=== PATIENT | male | born 1960 | race Caucasian/White ===

== ENCOUNTER 2017-09-16 10:24 | Observation (INO) | payer MEDICARE, OTHER ==
[2017-09-16 10:37] LABS: Actual Bicarbonate (HCO3a) 24.1 mEq/L (22-28); Base Excess (BEa) -0.9 mEq/L (-2.0 to +3.0); CO2 Tension 41.4 mmHg (35.0-45.0); Hemoglobin (Hb) 13.5 g/dL (14.0-18.0); O2 Tension (PaO2) 85.9 mmHg (80.0-100.0); pH, Arterial 7.38 (7.35-7.45)
[2017-09-16 10:38] LABS: Analyzer IN Cardio ER; Calcium, Ionized 1.2 mmol/L (1.12-1.30); Puncture Site RRA
[2017-09-16] MEDS ORDERED: Metoprolol Tartrate 5 MG/5 ML VIAL ONE (10:51)
[2017-09-16] MEDS ORDERED: Nitroglycerin 0.4 MG TAB (25 Tab Bottle) ONE (10:51)
[2017-09-16] MEDS ORDERED: Nitroglycerin 2% Ointment 1 INCH/1 GM Packet ONE (10:51)
[2017-09-16 11:14] LABS: #Eosinphils 0.2 thou/uL (0.0-0.7); #Lymphocytes 1.5 thou/uL (1.20-3.40); #Monocytes 0.4 thou/uL (0.11-0.59); #Neutrophils 5.6 thou/uL (1.40-6.50); %Basophils 0.6 % (0.0-1.0); %Lymphocytes 19.1 % (21.0-51.0); %Monocytes 4.5 % (0.0-10.0); %Neutrophils 72.8 % (42.0-75.0); Hemoglobin 14.6 g/dL (14.0-18.0); Mean Corpuscular Hemoglobin 31.2 pg (27.0-31.0); Mean Corpuscular Volume 94.6 fL (78.0-98.0); Mean Platelet Volume 6.5 fL (7.4-10.4); Platelet Count 296 thou/uL (130-400); RBC Distribution Width 13.9 % (11.5-14.5); Red Blood Cell (RBC) Count 4.69 mill/uL (4.70-6.10); White Blood Cell (WBC) Count 7.7 thou/uL (4.8-10.8)
--- NOTE | 2017-09-16 11:25 | RAD ---
UPRIGHT PORTABLE CHEST 1 VIEW: HISTORY: A 56-year-old male with a history of dyspnea and shortness of breath with labored breathing. FINDINGS: The patient has a very large body habitus which considerably lowers the sensitivity of this study. C ardiomegaly with bilateral vascular congestion and small pleural effusions and possibly mild acute ed rolf. Loop recorder overlying the left upper chest. Very poor inspiration. IMPRESSION: Suboptimal inspiratory effort with very large body habitus. Cardiomegaly with bilateral vascular con gestion and probably mild interstitial edema and pleural effusions, evidence for congestive heart adilia lure new from prior 05/01/05 study. Continued short-term followup. POS: [facility]
[2017-09-16] MEDS ORDERED: Furosemide 100 MG/10 ML VIAL ONE (11:31)
[2017-09-16 11:33] LABS: ALT (SGPT) 16 U/L (8-55); AST (SGOT) 15 U/L (5-34); Albumin 4.2 g/dL (3.5-5.0); Alkaline Phosphatase 103 U/L (40-150); Anion Gap 14 mmol/L (10-20); BUN (Urea Nitrogen) 16 mg/dL (8.4-25.7); Bilirubin, Total 0.7 mg/dL (0.2-1.2); CK (CPK) 41 U/L (30-200); Calc. Creatinine Clearance 0 mL/min (70-130); Calcium 8.9 mg/dL (7.8-10.44); Carbon Dioxide 23 mmol/L (22-29); Chloride 103 mmol/L (98-107); Estimated GFR-MDRD 87; Globulin 3.3 g/dL (2.4-3.5); Glucose 124 mg/dL (70-105); Potassium 4.3 mmol/L (3.5-5.1); Protein, Total 7.5 g/dL (6.0-8.3); Sodium 136 mmol/L (136-145)
[2017-09-16 11:38] LABS: Troponin I Less than 0.010 ng/mL (< 0.028)
[2017-09-16] MEDS ORDERED: Piperacillin/Tazobactam 4.5 GM VIAL ONE (12:34)
[2017-09-16 15:44] LABS: Troponin I Less than 0.010 ng/mL (< 0.028)
[2017-09-16] MEDS ORDERED: Senokot 8.6 MG TAB PO PRN (15:54)
[2017-09-16] MEDS ORDERED: Acetaminophen 325 MG TAB PO PRN (15:54)
[2017-09-16] MEDS ORDERED: Nitroglycerin 0.4 MG TAB (25 Tab Bottle) SL SCH (16:00)
[2017-09-16 17:40] LABS: Free T4 (Free Thyroxine) 0.99 ng/dL (0.70-1.48); Thyroid Stimulating Hormone 1.6692 uIU/mL (0.35-4.94)
[2017-09-16 18:51] LABS: Troponin I Less than 0.010 ng/mL (< 0.028)
[2017-09-16] MEDS: cloNIDine 0.1 MG TAB PO SCH (20:43)
[2017-09-16] MEDS: Cyclobenzaprine 10 MG TAB PO SCH (20:43)
[2017-09-16] MEDS: Carvedilol 6.25 MG TAB PO SCH (20:43)
[2017-09-16] MEDS ORDERED: Atorvastatin Calcium 40 MG TAB PO SCH (21:00)
--- NOTE | 2017-09-16 21:53 | PDOC.EVN ---
Event Note - Event Note Event Note: Patient initially indicated that he did not want any resuscitative efforts stating, "When its my time to go, I want to go.", but has clarified that he actually does want all measures taken initially. He is full code.
--- NOTE | 2017-09-16 23:00 | HP ---
DATE OF ADMISSION: 09/16/2017 CHIEF COMPLAINT: Shortness of breath. HISTORY OF PRESENT ILLNESS: This patient is a 56-year-old male with a history of morbid obesity and coronary artery disease. He reports he has had myocardial infarction x7 in the past. Reports his la st evaluation by his primary leach tank tender, Dr. Vela, was 6 months ago. He states at that time h e had stress test, which was apparently unremarkable. Patient presented via ambulance today. He was actually hoping to get to the med, but he was having s hortness of breath requiring the use of his CPAP, and therefore had to be brought here as it was clos er. The patient states that over the past 3 months, he is having worsening shortness of breath and o ila the last 3 weeks that has become significantly worse. He also has had some associated orthopnea during the last few weeks as well. He has no fevers or chills. No cough, no chest pain. He saw his PCP, Dr. Malik at one point for this and was told that he should try his nitroglycerin would be ons et of symptoms. He tried that, but did not seem to make a significant amount of difference. REVIEW OF SYSTEMS: Notable for some increasing weight. He said otherwise no sleep issues. ENT: No problems with hearing, vision, taste, or smell. Gastrointestinal: Patient reports some constipatio n with bowel movement every 3 weeks. He denies swallowing difficulties or diarrhea. Cardiovascular: No chest pains, palpitations, and he denies peripheral edema. Pulmonary: Patient has shortness of breath as above, but denies cough or wheezing. Genitourinary: Patient denies dysuria, frequency, n octuria, or incontinence. Skin: Denies rashes or lesions. No numbness, weakness, or tingling. Psy ch: Denies anxiety or depression symptoms. Endo: Patient denies polyuria, polydipsia. PAST MEDICAL HISTORY: Notable for myocardial infarction x7. He has had stents, hypertension, diabet es mellitus, hyperlipidemia, obstructive sleep apnea on CPAP. He also has a hernia that has been rep aired. PAST SURGICAL HISTORY: Patient had a loop recorder placed. It has been present in his chest for 10 years. He did not want to spend the money to take it out. FAMILY HISTORY: Father has diabetes. Mother has coronary artery disease. SOCIAL HISTORY: Patient had a history of smoking and drinking quite heavily, but he quit 18 years ag o. He denies drugs. He is , but does not live with his . They live on the same property , but not in the same indwelling. Patient's primary physician is Dr. Malik. His surrogate decision maker would be his . ALLERGIES: None. HOME MEDICATIONS: Atorvastatin 80 mg at bedtime, clonidine 0.1 mg b.i.d., meloxicam 15 mg every day, Prinivil 5 mg every day, Amaryl 1 mg every day, Flonase 2 sprays per nostril every day, Flexeril 10 mg t.i.d., Plavix 75 mg p.o. every day, allopurinol 300 mg every day, Nitrostat 0.4 mg every 5 minute s p.r.n., Coreg 6.25 mg p.o. b.i.d. PHYSICAL EXAMINATION: VITAL SIGNS: BP was 120/92, respirations 18, pulse 116, O2 sat was 92% on 2 liters. Of note, the rip yarbrough did receive 5 mg of IV metoprolol in the emergency department, given some elevated blood pressu re was as high as 185/121. He also received sublingual nitroglycerin. GENERAL APPEARANCE: Morbidly obese, age appropriate male. Presently, he is in no distress and appea rs comfortable. He is speaking in full sentences. HEENT: Patient has some periorbital puffiness. He has no OP lesions, but small oral airway and has snuff in his buccal pouch. NECK: It is difficult to examine, but no asymmetry or masses. CARDIOVASCULAR: Regular and borderline tachycardic. Exam is compromised by his habitus somewhat. LUNGS: Clear to auscultation. I do not hear any wheezes or rales. ABDOMEN: Obese, soft, nontender, nondistended, positive bowel sounds. I cannot palpate any masses o r organomegaly. EXTREMITIES: Have 2+ pitting edema in the pretibial area up to the knee. LABORATORY DATA: White count 7.7, hemoglobin 14.6, platelets 296. ABG: pH 7.38, pCO2 of 41.4, pO2 of 85.9. Sodium 139, potassium 4.3, chloride 99, ionized calcium is 1.2 and that was performed on [facility] at 02/27. Chemistries were only notable for a glucose of 124. Troponin is less than 0.01 x2. BN P is 168.3, albumin 4.2. Chest x-ray compromised by the patient's body habitus and poor inspiratory effort, appears to show significant cardiomegaly with bilateral vascular congestion with some probabl e mild interstitial edema, pleural effusions, which are new from 2006 comparison. EKG has some nonsp ecific T-wave findings. IMPRESSION AND PLAN: 1. Acute shortness of breath with dyspnea on exertion. It appears that patient has significant card iomegaly and some pulmonary edema, although x-ray is somewhat compromised. He is feeling better afte r a dose of diuretic and has voided pretty well. Interestingly, his BNP is low, which would mitigate against is being acute congestive heart failure decompensation. We will obtain an echocardiogram. We will obtain a TSH as well given his constipation and myxedema-type appearance. I did discuss with his primary leach tank tender. Pending the results of the echo and his response to treatment, may need t o involve our leach tank tender. 2. Diabetes mellitus. We will continue with his usual home meds. Keep him on a diabetic diet. Acc u-Cheks. 3. Hypertension. Continue with his usual home regimen. This includes lisinopril and Coreg. 4. History of coronary artery disease. We will continue with the Plavix. 5. History of allergic rhinitis, continue with his outpatient regimen of Flonase.
[2017-09-17] MEDS: HYDROcodone/Acetaminophen 7.5/325 mg Tablet PO PRN ×3 (02:30→15:11)
[2017-09-17] MEDS ORDERED: cloNIDine 0.1 MG TAB PO PRN (04:01)
[2017-09-17 04:46] LABS: Hemoglobin A1c 6.1 % (4.0-6.0)
[2017-09-17 05:04] LABS: Anion Gap 16 mmol/L (10-20); BUN (Urea Nitrogen) 15 mg/dL (8.4-25.7); Calc. Creatinine Clearance 239 mL/min (70-130); Calcium 9.3 mg/dL (7.8-10.44); Carbon Dioxide 24 mmol/L (22-29); Chloride 99 mmol/L (98-107); Estimated GFR-MDRD Greater than 90; Glucose 92 mg/dL (70-105); Magnesium 1.8 mg/dL (1.6-2.6); Sodium 135 mmol/L (136-145)
[2017-09-17 06:24] VITALS: BMI 47.7
[2017-09-17] MEDS ORDERED: Glimepiride 1 MG TAB PO SCH (08:00)
[2017-09-17] MEDS: Carvedilol 6.25 MG TAB PO SCH (08:52)
[2017-09-17] MEDS: Cyclobenzaprine 10 MG TAB PO SCH ×2 (08:53→15:11)
[2017-09-17] MEDS: cloNIDine 0.1 MG TAB PO SCH (08:53)
[2017-09-17] MEDS: Fluticasone Propionate Nasal Spray 16 gm Bottle NASAL SCH ×2 (08:56→08:58)
[2017-09-17] MEDS ORDERED: Clopidogrel Bisulfate 75 MG TAB PO SCH (09:00)
[2017-09-17] MEDS ORDERED: Lisinopril 5 MG TAB PO SCH ×2 (09:00)
[2017-09-17] MEDS ORDERED: Meloxicam 15 MG TAB PO SCH (09:00)
[2017-09-17] MEDS ORDERED: Lisinopril 10 MG TAB PO SCH (09:00)
[2017-09-17] MEDS ORDERED: Prevnar 13-Val Conj/PF 0.5 ML SYRINGE IM ONE (09:00)
[2017-09-17] MEDS ORDERED: Allopurinol 300 MG TAB PO SCH (09:00)
[2017-09-17] MEDS ORDERED: Enoxaparin Sodium 40 MG/0.4 ML SYRINGE SC SCH (09:00)
[2017-09-17] MEDS ORDERED: Furosemide 20 MG TAB PO SCH ×2 (09:30)
--- NOTE | 2017-09-17 11:37 | RAD ---
CHEST TWO VIEWS: Comparison: 09-16-17 History: Dyspnea. Congestive heart failure. FINDINGS: Persistent cardiomegaly. Pulmonary vessels are within normal limits. There is improved aeration of th e lung bases. Persistent pleural and parenchymal changes do remain, left greater than right. No pneum othorax. IMPRESSION: Improved aeration lung parenchyma. There is still evidence of congestive heart failure. Continued aiyana veillance to insure complete resolution is recommended. POS: [facility]
[2017-09-17 11:46] LABS: Troponin I 0.011 ng/mL (< 0.028)
[2017-09-17 16:15] LABS: Anion Gap 16 mmol/L (10-20); BUN (Urea Nitrogen) 14 mg/dL (8.4-25.7); Calc. Creatinine Clearance 197 mL/min (70-130); Calcium 9.4 mg/dL (7.8-10.44); Carbon Dioxide 23 mmol/L (22-29); Chloride 98 mmol/L (98-107); Estimated GFR-MDRD 77; Glucose 95 mg/dL (70-105); Magnesium 2.6 mg/dL (1.6-2.6); Potassium 5.4 mmol/L (3.5-5.1); Sodium 132 mmol/L (136-145)
[2017-09-17 17:47] LABS: Anion Gap 15 mmol/L (10-20); BUN (Urea Nitrogen) 14 mg/dL (8.4-25.7); Calc. Creatinine Clearance 216 mL/min (70-130); Calcium 9.2 mg/dL (7.8-10.44); Carbon Dioxide 23 mmol/L (22-29); Chloride 99 mmol/L (98-107); Estimated GFR-MDRD 86; Glucose 97 mg/dL (70-105); Potassium 4.2 mmol/L (3.5-5.1); Sodium 133 mmol/L (136-145)
[2017-09-17 20:43] VITALS: BP 150/95; TEMP 98.6
[2017-09-18] MEDS ORDERED: Furosemide 20 MG TAB PO SCH (09:00)
--- NOTE | 2017-09-18 13:04 | DIS ---
DATE OF ADMISSION: 09/16/2017 DATE OF DISCHARGE: 09/17/2017 DISCHARGE DIAGNOSES: 1. Pulmonary edema. 2. Reduced left ventricular function with ejection fraction estimated at 30-40 % with a moderately dilated left ventricle. 3. Morbid obesity. 4. History of coronary artery disease. 5. History of multiple myocardial infarctions. 6. Obstructive sleep apnea. 7. Diabetes mellitus. 8. Hypertension. 9. History of allergic rhinitis. HISTORY: This patient is a 56-year-old morbidly obese male with a history of diabetes and coronary artery disease. The patient reported he had 7 prior myocardial infarctions. His visitor service assistant is Dr. Sridhar Vela. The patient presented via ambulance to the emergency department. He was experiencing several months of worsening dyspnea. Over the preceding couple weeks it had become significantly worse to the point he could not get up and go to the bathroom without severe dyspnea on exertion. He also had some orthopnea. He was brought to the emergency department where his chest x-ray which was impeded by his body habitus did appear to show cardiomegaly with some pulmonary edema. He had a BNP that was 168. His ABG was not impressive. His troponin was negative. HOSPITAL COURSE: The patient received 80 mg of IV Lasix in the emergency department, had fairly substantial diuresis with that. He was maintained on oxygen supplementation. Initially, he was requiring BiPAP at 12/6, but after some diuresis was able to quickly come down to nasal cannula. The following day , the patient felt substantially better. He did receive another dose of p.o. Lasix and an echocardiogram was obtained. I spoke with his primary visitor service assistant , Dr. Vela, and made him aware of the patient's situation. Once he had the echocardiogram performed and it was evident that his ejection fraction was somewhat reduced in the 30-40% range, it was felt the patient certainly may be suffering from some volume overload secondary to some congestive heart failure. He was feeling substantially better and felt to be stable for discharge to home. Discussed with Dr. Vela again and he recommended pushing the beta ne dose especially in light of his borderline tachycardia. PHYSICAL EXAMINATION: VITAL SIGNS: On discharge his temperature is 97.7, pulse 103, respirations 18, BP 150/95, O2 sats 95% on room air. GENERAL: The patient was awake and alert. RESPIRATORY: He had no significant dyspnea. His lungs were generally clear. CARDIOVASCULAR: His heart was regular without murmurs. EXTREMITIES: He still had some trace edema of his lower extremities, but minimal. DISPOSITION: The patient is discharged to home. DISCHARGE MEDICATIONS: After discussion with his visitor service assistant will increase his Coreg to 12.5 mg 1 p.o. b.i.d. We will also add Lasix 20 mg p.o. daily, and potassium 10 mEq p.o. daily. He will continue his usual home medications including sublingual nitroglycerin, Meloxicam 15 mg every day, glimepiride 1 mg p.o. daily, Flonase 2 sprays per nostril daily, Plavix 75 mg every day, clonidine 0.1 mg b.i.d., lisinopril 5 mg every day, Allopurinol 300 mg every day. Flexeril 10 mg t.i.d. p.r.n., atorvastatin 80 mg p.o. at bedtime. DIET: He is to have a low sodium healthy cardiac healthy diet. ACTIVITY: His activity level is as tolerated. FOLLOWUP: He is to follow up with his PCP and Dr. Vela next available appointment. The patient is to return to the emergency department should he have any problems prior to that follow-up time. NIRAV
--- NOTE | 2017-09-21 12:44 | EKG ---
Test Reason : Blood Pressure : / mmHG Vent. Rate : 128 BPM Atrial Rate : 128 BPM P-R Int : 152 ms QRS Dur : 102 ms QT Int : 290 ms P-R-T Axes : 047 024 085 degrees QTc Int : 423 ms Sinus tachycardia with occasional Premature ventricular complexes Nonspecific T wave abnormality Abnormal ECG Confirmed by CHICHO BULL, JOELLEN Hamilton ([id number]), editorial intern JEET BUSTAMANTE ([id number]) on 09/21/2017 12:44:21 PM Referred By: Confirmed By:JOELLEN VALENTINO MD
== END 2017-09-17 20:40 | disposition home or self-care (01) ==
LOC: ERS 10:24 → INTOOBSV 14:35 → 2NO 14:35
PROVIDERS: ADMIT Internal Medicine; ATTEND Internal Medicine
DX: J81.1 Chronic pulmonary edema (principal); E11.9 Type 2 diabetes mellitus without complications; I10 Essential (primary) hypertension; I25.10 Atherosclerotic heart disease of native coronary artery without angina pectoris; G47.33 Obstructive sleep apnea (adult) (pediatric); I25.2 Old myocardial infarction; E66.01 Morbid (severe) obesity due to excess calories; Z79.02 Long term (current) use of antithrombotics/antiplatelets; Z79.899 Other long term (current) drug therapy
CPT/HCPCS: 71045; 71046; 80048 ×2; 82550; 82553; 82805; 82962 ×2; 83036; 83735; 83880; 84439; 84484 ×3; 90670; 93005; 93306; 94660 ×2; 96372; 96374; 96375; 99285; G0009; G0378 ×2; 36415; 36416; 80053; 84443; 85025; 90471; J1650; J1940; J2543

== ENCOUNTER 2020-01-11 06:18 | Outpatient (CLI) | payer MEDICARE, OTHER ==
[2020-01-12 11:33] LABS: SARS-CoV-2 MS2 Positive; SARS-CoV-2 N Gene Negative; SARS-CoV-2 S Gene Negative; SARS-CoV-2 by NAA Not Detected (NotDetected); SARS-CoV-2 orf1ab Negative
== END 2020-01-11 06:19 | disposition home or self-care (01) ==
LOC: LABBT 06:18
PROVIDERS: ATTEND Internal Medicine Gastroenterology
DX: Z20.828 Contact with and (suspected) exposure to other viral communicable diseases (principal)
CPT/HCPCS: 87635; U0003

== ENCOUNTER 2020-01-14 07:15 | Day surgery (SDC) | payer MEDICARE ==
[2020-01-13 09:47] VITALS: BMI 42.3
[2020-01-14] MEDS ORDERED: PROPOFOL 200 MG/20 ML VIAL ONE (11:07)
[2020-01-14] MEDS ORDERED: Lidocaine 1% PF 5 ML VIAL ONE (11:07)
[2020-01-14] MEDS ORDERED: Ketamine 50 MG/ML (10ML VIAL) ONE (11:22)
--- NOTE | 2020-01-14 14:37 | OP ---
DATE OF PROCEDURE: 01/14/2020 PROCEDURE PERFORMED: Colonoscopy. PREOPERATIVE DIAGNOSIS: Cologuard positive. DESCRIPTION OF PROCEDURE: Informed consent was obtained from the patient. He was sedated with total intravenous anesthesia. The colonoscope was advanced to the cecum, where the ileocecal valve and appendiceal orifice were clearly identified. There was a lot of adherent stool in the colon that was washed and cleared with irrigation and suction. There was an oily film that formed over the lens and the scope was removed and the lens was cleaned. We went back in with the scope to the cecum and then again an oily film formed over the lens. We used lens inserter with the scope and also mechanical and this would not clear the lens. The images remained blurry throughout. We then again removed the scope and exchanged for an another scope. At this time, it was an older scope; however, the image was better. I inserted the scope all the way to the cecum again and the colonic mucosa was carefully inspected in a circumferential fashion. The colonic mucosa was normal throughout. Retroflexed views in the rectum were normal. IMPRESSION: Normal colonoscopy. RECOMMENDATIONS: Repeat colon cancer screening in 10 years. Job ID: [id number] [id number]
== END 2020-01-14 14:05 | disposition home or self-care (01) ==
LOC: SDC 07:15
PROVIDERS: ATTEND Internal Medicine Gastroenterology
PROC: 0DJD8ZZ Inspection of Lower Intestinal Tract, Via Natural or Artificial Opening Endoscopic (ICD-10-PCS; principal; 2020-01-14)
DX: R19.5 Other fecal abnormalities (principal); K59.09 Other constipation; I25.10 Atherosclerotic heart disease of native coronary artery without angina pectoris; M19.90 Unspecified osteoarthritis, unspecified site; I25.2 Old myocardial infarction; I10 Essential (primary) hypertension; G47.30 Sleep apnea, unspecified; E66.01 Morbid (severe) obesity due to excess calories; Z68.41 Body mass index [BMI] 40.0-44.9, adult; Z87.891 Personal history of nicotine dependence; Z79.1 Long term (current) use of non-steroidal anti-inflammatories (NSAID); Z79.84 Long term (current) use of oral hypoglycemic drugs; Z79.899 Other long term (current) drug therapy; Z95.5 Presence of coronary angioplasty implant and graft
CPT/HCPCS: J2704

== ENCOUNTER 2025-01-03 12:24 | Emergency (ER) | payer MEDICARE ==
[2025-01-03 14:16] LABS: ALT (SGPT) 51 U/L (Less than 45); AST (SGOT) 30 U/L (11-34); Albumin 3.4 g/dL (3.1-4.5); Alkaline Phosphatase 122 U/L (40-110); Anion Gap 13 mmol/L (10-20); BUN (Urea Nitrogen) 11 mg/dL (8.4-25.7); Bilirubin, Total 0.3 mg/dL (0.3-1.2); CK (CPK) 46 U/L (30-200); Calc. Creatinine Clearance 0 mL/min (70-130); Calcium 8.9 mg/dL (7.8-10.44); Carbon Dioxide 26 mmol/L (23-31); Chloride 107 mmol/L (98-107); Globulin 3.6 g/dL (2.4-3.5); Glucose 89 mg/dL (80-115); Potassium 4.3 mmol/L (3.5-5.1); Sodium 142 mmol/L (136-145)
[2025-01-03 14:28] LABS: #Basophils 0.09 10x3/uL (0.0-0.2); #Eosinophils 1.08 10x3/uL (0.0-0.7); #Monocytes 0.77 10x3/uL (0.11-0.59); #Neutrophils 9.57 10x3/uL (1.40-6.50); %Basophils 0.6 % (0.0-1.0); %Eosinophils 7.7 % (0.0-10.0); %Lymphocytes 17.0 % (21.0-51.0); %Monocytes 5.5 % (0.0-10.0); %Neutrophils 68.2 % (42.0-75.0); Hematocrit 48.5 % (42.0-52.0); Hemoglobin 15.2 g/dL (14.0-18.0); Mean Corpuscular Hemoglobin 30.3 pg (27.0-31.0); Mean Corpuscular Volume 96.6 fL (78.0-98.0); Platelet Count 402 10x3/uL (130-400); Red Blood Cell (RBC) Count 5.02 mill/uL (4.70-6.10); White Blood Cell (WBC) Count 14.04 10x3/uL (4.8-10.8)
[2025-01-03 14:44] LABS: Lipase 47 U/L (8-78)
[2025-01-03 14:46] LABS: Acetaminophen Less than 10 mcg/mL (Less than 10); Salicylate Less than 8.0 mg/dL (Less than 8.0)
[2025-01-03] MEDS ORDERED: Furosemide 40 MG (4 mL) VIAL ONE (15:23)
[2025-01-03 16:15] LABS: Bacteria/HPF None Seen HPF (None Seen); CAUTI Indications for Culture Pelvic or flank pain; Glucose, Urine (Dipstick) >=1000 mg/dL (Negative); Leukocyte Negative Leu/uL (Negative); Protein, Urine (Dipstick) Negative (Neg-Trace); RBC/HPF 0-3 HPF (0-3); Specific Gravity, Urine 1.011 (1.002-1.036); WBC/HPF 0-3 HPF (0-3)
[2025-01-03 16:22] LABS: Cocaine Metabolite Screen Negative (Negative); THC/Cannabinoid Screen Negative (Negative); Tricyclic Screen Negative (Negative); Urine Culture Reflex No No
[2025-01-03] MEDS ORDERED: HYDROcodone/Acetaminophen 10/325 mg Tablet ONE (17:38)
== END 2025-01-03 18:30 | disposition home or self-care (01) ==
LOC: ERS 12:24
DX: R53.1 Weakness (principal); I11.0 Hypertensive heart disease with heart failure; I50.9 Heart failure, unspecified; E11.9 Type 2 diabetes mellitus without complications; F17.220 Nicotine dependence, chewing tobacco, uncomplicated
CPT/HCPCS: 71045; 80306; 80307; 81001; 82550; 83605; 83690; 83880; 84484; 87040; 87428; 93005; J1940; 36415; 80053; 84443; 85025; 96374

== ENCOUNTER 2025-01-05 03:42 | Emergency (ER) | payer MEDICARE ==
[2025-01-05 04:13] LABS: #Basophils 0.08 10x3/uL (0.0-0.2); #Eosinophils 1.15 10x3/uL (0.0-0.7); #Monocytes 0.45 10x3/uL (0.11-0.59); #Neutrophils 7.35 10x3/uL (1.40-6.50); %Basophils 0.7 % (0.0-1.0); %Eosinophils 10.3 % (0.0-10.0); %Lymphocytes 18.2 % (21.0-51.0); %Monocytes 4.0 % (0.0-10.0); %Neutrophils 65.9 % (42.0-75.0); Hematocrit 45.0 % (42.0-52.0); Hemoglobin 14.4 g/dL (14.0-18.0); Mean Corpuscular Hemoglobin 30.5 pg (27.0-31.0); Mean Corpuscular Volume 95.3 fL (78.0-98.0); Platelet Count 333 10x3/uL (130-400); Red Blood Cell (RBC) Count 4.72 mill/uL (4.70-6.10); White Blood Cell (WBC) Count 11.16 10x3/uL (4.8-10.8)
[2025-01-05 04:24] LABS: ALT (SGPT) 46 U/L (Less than 45); AST (SGOT) 31 U/L (11-34); Albumin 3.4 g/dL (3.1-4.5); Alkaline Phosphatase 109 U/L (40-110); Anion Gap 16 mmol/L (10-20); BUN (Urea Nitrogen) 13 mg/dL (8.4-25.7); Bilirubin, Total 0.6 mg/dL (0.3-1.2); Calc. Creatinine Clearance 0 mL/min (70-130); Calcium 9.0 mg/dL (7.8-10.44); Carbon Dioxide 22 mmol/L (23-31); Chloride 103 mmol/L (98-107); Globulin 3.8 g/dL (2.4-3.5); Glucose 133 mg/dL (80-115); Potassium 4.2 mmol/L (3.5-5.1); Sodium 137 mmol/L (136-145)
[2025-01-05 06:22] LABS: Free T4 (Free Thyroxine) 1.1 ng/dL (0.70-1.48); Thyroid Stimulating Hormone 4.8724 uIU/mL (0.35-4.94)
[2025-01-05] MEDS ORDERED: HYDROcodone/Acetaminophen 5/325 mg Tablet ONE ×2 (07:52→14:10)
[2025-01-05 08:23] LABS: Bacteria/HPF 1+ HPF (None Seen); CAUTI Indications for Culture Pelvic or flank pain; Glucose, Urine (Dipstick) 500 mg/dL (Negative); Leukocyte 75 Leu/uL (Negative); Protein, Urine (Dipstick) 50 mg/dL (Neg-Trace); RBC/HPF None Seen HPF (0-3); Specific Gravity, Urine 1.049 (1.002-1.036)
[2025-01-05 08:25] LABS: Urine Culture Reflex No No
[2025-01-05] MEDS ORDERED: Iopamidol-370 76% 500 ML MDV (1 ML CHARGE) ONE (10:06)
== END 2025-01-05 16:18 | disposition home or self-care (01) ==
LOC: ERS 03:42
DX: M54.50 Low back pain, unspecified (principal); G89.29 Other chronic pain; I10 Essential (primary) hypertension; E11.9 Type 2 diabetes mellitus without complications; F17.220 Nicotine dependence, chewing tobacco, uncomplicated; Z79.899 Other long term (current) drug therapy
CPT/HCPCS: 71275; 74177; 76870; 80053; 81001; 83605; 83690; 83880; 84439; 84443; 84484; 85025; 93005; 93970; 93976; Q9967

== ENCOUNTER 2025-02-08 08:41 | Inpatient (IN) | payer MEDICARE ==
[2025-02-08] MEDS ORDERED: Nitroglycerin 2% Ointment 1 INCH/1 GM Packet ONE (09:24)
[2025-02-08] MEDS ORDERED: Nitroglycerin 0.4 MG TAB (25 Tab Bottle) ONE (09:28)
[2025-02-08 09:54] LABS: #Basophils 0.05 10x3/uL (0.0-0.2); #Eosinophils 0.52 10x3/uL (0.0-0.7); #Monocytes 0.41 10x3/uL (0.11-0.59); #Neutrophils 5.18 10x3/uL (1.40-6.50); %Basophils 0.6 % (0.0-1.0); %Eosinophils 6.6 % (0.0-10.0); %Lymphocytes 21.7 % (21.0-51.0); %Monocytes 5.2 % (0.0-10.0); %Neutrophils 65.6 % (42.0-75.0); Hematocrit 38.7 % (42.0-52.0); Hemoglobin 12.7 g/dL (14.0-18.0); Mean Corpuscular Hemoglobin 31.1 pg (27.0-31.0); Mean Corpuscular Volume 94.6 fL (78.0-98.0); Platelet Count 256 10x3/uL (130-400); Red Blood Cell (RBC) Count 4.09 mill/uL (4.70-6.10); White Blood Cell (WBC) Count 7.89 10x3/uL (4.8-10.8)
[2025-02-08 10:27] LABS: ALT (SGPT) 37 U/L (Less than 45); AST (SGOT) 23 U/L (11-34); Albumin 2.9 g/dL (3.1-4.5); Alkaline Phosphatase 89 U/L (40-110); Anion Gap 12 mmol/L (10-20); BUN (Urea Nitrogen) 17 mg/dL (8.4-25.7); Bilirubin, Total 0.4 mg/dL (0.3-1.2); Calc. Creatinine Clearance 0 mL/min (70-130); Calcium 8.4 mg/dL (7.8-10.44); Carbon Dioxide 25 mmol/L (23-31); Chloride 105 mmol/L (98-107); Globulin 3.1 g/dL (2.4-3.5); Glucose 111 mg/dL (80-115); Potassium 4.1 mmol/L (3.5-5.1); Sodium 138 mmol/L (136-145)
[2025-02-08] MEDS ORDERED: Iopamidol-370 76% 500 ML MDV (1 ML CHARGE) ONE (11:05)
[2025-02-08] MEDS ORDERED: Dextrose 50% Abboject 50 ML SYRINGE SLOW IVP PRN (13:52)
[2025-02-08] MEDS ORDERED: Glucagon 1 MG/ML KIT IM PRN (13:52)
[2025-02-08] MEDS: Aspirin Chewable 81 MG TAB PO SCH (15:56)
[2025-02-08] MEDS: Carvedilol 6.25 MG TAB PO SCH (15:56)
[2025-02-08] MEDS: Nitroglycerin 0.4 MG TAB (25 Tab Bottle) SL PRN (17:27)
[2025-02-08] MEDS: Nitroglycerin 2% Ointment 1 INCH/1 GM Packet TOP SCH (17:55)
[2025-02-08] MEDS: Nitroglycerin 2% Ointment 1 INCH/1 GM Packet ONE (17:56)
[2025-02-08] MEDS: Ketorolac Tromethamine 30 MG (1 mL) VIAL IVP SCH (19:21)
[2025-02-08] MEDS: Sacubitril 24MG/Valsartan 26 MG TAB PO SCH (22:11)
[2025-02-09 05:05] LABS: Cardiac Risk 3.0 (Less than 4.5); Cholesterol 118.0 mg/dl (< 200 Desired); HDL Cholesterol 39.0 mg/dL (>60 Neg Risk); LDL Cholesterol, Calculated 59.0 mg/dL; Triglycerides 102.0 mg/dL (Less than 150)
[2025-02-09] MEDS: Aspirin Chewable 81 MG TAB PO SCH (09:41)
[2025-02-09] MEDS: Amiodarone 200 MG TAB PO SCH (09:41)
[2025-02-09] MEDS: HYDROcodone/Acetaminophen 5/325 mg Tablet PO PRN (15:26)
[2025-02-09] MEDS: Melatonin 3 MG TAB PO PRN (21:34)
[2025-02-10 04:25] LABS: #Basophils 0.04 10x3/uL (0.0-0.2); #Eosinophils 0.49 10x3/uL (0.0-0.7); #Monocytes 0.43 10x3/uL (0.11-0.59); #Neutrophils 4.61 10x3/uL (1.40-6.50); %Basophils 0.6 % (0.0-1.0); %Eosinophils 6.8 % (0.0-10.0); %Lymphocytes 21.9 % (21.0-51.0); %Monocytes 6.0 % (0.0-10.0); %Neutrophils 64.3 % (42.0-75.0); Hematocrit 39.2 % (42.0-52.0); Hemoglobin 12.4 g/dL (14.0-18.0); Mean Corpuscular Hemoglobin 31.0 pg (27.0-31.0); Mean Corpuscular Volume 98.0 fL (78.0-98.0); Platelet Count 273 10x3/uL (130-400); Red Blood Cell (RBC) Count 4.00 mill/uL (4.70-6.10); White Blood Cell (WBC) Count 7.17 10x3/uL (4.8-10.8)
[2025-02-10 04:30] LABS: Anion Gap 10 mmol/L (10-20); BUN (Urea Nitrogen) 14 mg/dL (8.4-25.7); Calc. Creatinine Clearance 195 mL/min (70-130); Calcium 8.6 mg/dL (7.8-10.44); Carbon Dioxide 27 mmol/L (23-31); Chloride 103 mmol/L (98-107); Glucose 97 mg/dL (80-115); Magnesium 2.0 mg/dL (1.6-2.6); Potassium 4.2 mmol/L (3.5-5.1); Sodium 136 mmol/L (136-145)
[2025-02-10] MEDS: Magnesium 2 GM/50 ML(in water) 2 GM in Premix 1 BAG IVPB SCH (09:16)
[2025-02-10] MEDS: Aspirin 81 mg Enteric Coated Tablet PO SCH (09:17)
[2025-02-11 04:35] LABS: Anion Gap 13 mmol/L (10-20); BUN (Urea Nitrogen) 19 mg/dL (8.4-25.7); Calc. Creatinine Clearance 172 mL/min (70-130); Calcium 8.5 mg/dL (7.8-10.44); Carbon Dioxide 26 mmol/L (23-31); Chloride 103 mmol/L (98-107); Glucose 89 mg/dL (80-115); Potassium 4.6 mmol/L (3.5-5.1); Sodium 137 mmol/L (136-145)
[2025-02-11] MEDS: Heparin 5,000 UNITS/ML VIAL SC SCH (21:41)
[2025-02-12 05:12] LABS: Anion Gap 13 mmol/L (10-20); BUN (Urea Nitrogen) 19 mg/dL (8.4-25.7); Calc. Creatinine Clearance 174 mL/min (70-130); Calcium 8.4 mg/dL (7.8-10.44); Carbon Dioxide 25 mmol/L (23-31); Chloride 102 mmol/L (98-107); Glucose 96 mg/dL (80-115); Potassium 4.6 mmol/L (3.5-5.1); Sodium 135 mmol/L (136-145)
[2025-02-12 08:46] VITALS: BP 127/64; TEMP 98.4
[2025-02-12] MEDS ORDERED: Heparin 5,000 UNITS/ML VIAL SC SCH (14:00)
== END 2025-02-12 12:45 | DRG 313 ==
LOC: ERS 08:41 → ERHOLD 12:23 → 2NO 14:59 → OBSVTOIN 02-09 11:27
PROVIDERS: ADMIT Internal Medicine; ATTEND Internal Medicine
PROC: 5A09357 Assistance with Respiratory Ventilation, Less than 24 Consecutive Hours, Continuous Positive Airway Pressure (ICD-10-PCS; principal; 2025-02-09)
PROC: 5A09357 Assistance with Respiratory Ventilation, Less than 24 Consecutive Hours, Continuous Positive Airway Pressure (ICD-10-PCS; 2025-02-10)
DX: R07.9 Chest pain, unspecified (principal); I50.42 Chronic combined systolic (congestive) and diastolic (congestive) heart failure; I42.9 Cardiomyopathy, unspecified; Z68.42 Body mass index [BMI] 45.0-49.9, adult; E11.9 Type 2 diabetes mellitus without complications; I25.10 Atherosclerotic heart disease of native coronary artery without angina pectoris; G47.33 Obstructive sleep apnea (adult) (pediatric); Z98.890 Other specified postprocedural states; Z79.899 Other long term (current) drug therapy; I11.0 Hypertensive heart disease with heart failure; E66.01 Morbid (severe) obesity due to excess calories; Z79.82 Long term (current) use of aspirin
CPT/HCPCS: 36415; 36416; 71045; 71275; 80048; 80053; 80061; 83036; 83735; 83880; 84484; 85025; 85379; 93005; 93010; 94760; 96374; J1644; J1885; J2270; J2272; J3475; Q9967

== ENCOUNTER 2025-03-03 00:18 | Inpatient (IN) | payer MEDICARE ==
[2025-03-03 01:44] LABS: Lipase 26 U/L (8-78); Magnesium 1.9 mg/dL (1.6-2.6)
[2025-03-03] MEDS ORDERED: Ondansetron PF 4 MG/2 ML Vial ONE (02:21)
[2025-03-03 02:56] LABS: INR-International Normal Ratio 1.1; PTT 30.1 sec (22.9-36.1); Prothrombin Time 14.0 sec (12.0-14.7)
[2025-03-03 05:18] LABS: Bacteria/HPF None Seen HPF (None Seen); CAUTI Indications for Culture Pelvic or flank pain; Glucose, Urine (Dipstick) Greater than 1000 mg/dL (Negative); Leukocyte Negative Leu/uL (Negative); Protein, Urine (Dipstick) Negative (Neg-Trace); RBC/HPF None Seen HPF (0-3); Specific Gravity, Urine 1.044 (1.002-1.036); WBC/HPF 0-3 HPF (0-3)
[2025-03-03 05:19] LABS: Urine Culture Reflex No No
[2025-03-03 05:28] LABS: #Basophils 0.05 10x3/uL (0.0-0.2); #Eosinophils 0.10 10x3/uL (0.0-0.7); #Monocytes 0.39 10x3/uL (0.11-0.59); #Neutrophils 4.82 10x3/uL (1.40-6.50); %Basophils 0.8 % (0.0-1.0); %Eosinophils 1.6 % (0.0-10.0); %Lymphocytes 16.2 % (21.0-51.0); %Monocytes 6.1 % (0.0-10.0); %Neutrophils 74.8 % (42.0-75.0); Hematocrit 40.7 % (42.0-52.0); Hemoglobin 12.7 g/dL (14.0-18.0); Mean Corpuscular Hemoglobin 30.5 pg (27.0-31.0); Mean Corpuscular Volume 97.8 fL (78.0-98.0); Platelet Count 240 10x3/uL (130-400); Red Blood Cell (RBC) Count 4.16 mill/uL (4.70-6.10); White Blood Cell (WBC) Count 6.43 10x3/uL (4.8-10.8)
[2025-03-03 05:29] LABS: ALT (SGPT) 38 U/L (Less than 45); AST (SGOT) 41 U/L (11-34); Albumin 3.1 g/dL (3.1-4.5); Alkaline Phosphatase 111 U/L (40-110); Anion Gap 13 mmol/L (10-20); BUN (Urea Nitrogen) 15 mg/dL (8.4-25.7); Bilirubin, Total 0.6 mg/dL (0.3-1.2); Calc. Creatinine Clearance 0 mL/min (70-130); Calcium 8.4 mg/dL (7.8-10.44); Carbon Dioxide 21 mmol/L (23-31); Chloride 103 mmol/L (98-107); Globulin 3.4 g/dL (2.4-3.5); Glucose 141 mg/dL (80-115); Potassium 4.0 mmol/L (3.5-5.1); Sodium 133 mmol/L (136-145)
[2025-03-03] MEDS ORDERED: Ketorolac Tromethamine 30 MG (1 mL) VIAL ONE ×2 (06:16→13:15)
[2025-03-03] MEDS ORDERED: Metoclopramide HCl 10 MG (2 mL) VIAL ONE (06:33)
[2025-03-03] MEDS ORDERED: Metoclopramide HCl 10 MG (2 mL) VIAL IVP PRN (09:08)
[2025-03-03] MEDS ORDERED: Glucagon 1 MG/ML KIT IM PRN (09:09)
[2025-03-03] MEDS ORDERED: Dextrose 50% Abboject 50 ML SYRINGE SLOW IVP PRN (09:09)
[2025-03-03] MEDS ORDERED: Iopamidol-370 76% 500 ML MDV (1 ML CHARGE) ONE (09:10)
[2025-03-03] MEDS ORDERED: Lidocaine 2% 6 ML (Jelly) SYR ONE (13:19)
[2025-03-03] MEDS: Ketorolac Tromethamine 30 MG (1 mL) VIAL IVP SCH (14:22)
[2025-03-03] MEDS: Lidocaine 4% Topical Sol 50 ML BOT TOP SCH (14:22)
[2025-03-03] MEDS: FLU (Fluarix Triv) 25-26 (6MOS UP)/PF 45 MCG/0.5 ML Syringe IM ONE (16:18)
[2025-03-03] MEDS: PNEUMOC 20-VAL CONJ-DIP CRM/PF 0.5 ML SYRINGE IM ONE (16:18)
[2025-03-03] MEDS: Pantoprazole 40 MG VIAL IVP SCH (16:20)
[2025-03-03] MEDS: Phenol 177 ML BOT PO PRN (18:20)
[2025-03-03 19:08] LABS: Influenza A by NAA Not Detected (NotDetected); Influenza B by NAA Not Detected (NotDetected); RSV by NAA Not Detected (NotDetected); SARS-CoV-2 NAA Rapid Test DETECTED (NotDetected)
[2025-03-03] MEDS ORDERED: Famotidine/PF 20 mg/2ml Vial SLOW IVP SCH (21:00)
[2025-03-03] MEDS: Acetaminophen 325 MG TAB PO PRN (21:51)
[2025-03-04] MEDS: Melatonin 3 MG TAB PO PRN (02:13)
[2025-03-04 05:54] LABS: #Basophils 0.05 10x3/uL (0.0-0.2); #Eosinophils 0.42 10x3/uL (0.0-0.7); #Monocytes 0.56 10x3/uL (0.11-0.59); #Neutrophils 6.66 10x3/uL (1.40-6.50); %Basophils 0.6 % (0.0-1.0); %Eosinophils 4.8 % (0.0-10.0); %Lymphocytes 10.9 % (21.0-51.0); %Monocytes 6.5 % (0.0-10.0); %Neutrophils 76.7 % (42.0-75.0); Hematocrit 41.6 % (42.0-52.0); Hemoglobin 12.9 g/dL (14.0-18.0); Mean Corpuscular Hemoglobin 30.9 pg (27.0-31.0); Mean Corpuscular Volume 99.8 fL (78.0-98.0); Platelet Count 235 10x3/uL (130-400); Red Blood Cell (RBC) Count 4.17 mill/uL (4.70-6.10); White Blood Cell (WBC) Count 8.68 10x3/uL (4.8-10.8)
[2025-03-04 06:10] LABS: ALT (SGPT) 31 U/L (Less than 45); AST (SGOT) 26 U/L (11-34); Albumin 2.9 g/dL (3.1-4.5); Alkaline Phosphatase 85 U/L (40-110); Anion Gap 12 mmol/L (10-20); BUN (Urea Nitrogen) 14 mg/dL (8.4-25.7); Bilirubin, Total 0.5 mg/dL (0.3-1.2); Calc. Creatinine Clearance 0 mL/min (70-130); Calcium 8.2 mg/dL (7.8-10.44); Carbon Dioxide 23 mmol/L (23-31); Chloride 107 mmol/L (98-107); Globulin 3.1 g/dL (2.4-3.5); Glucose 93 mg/dL (80-115); Magnesium 2.0 mg/dL (1.6-2.6); Potassium 3.9 mmol/L (3.5-5.1); Sodium 138 mmol/L (136-145)
[2025-03-04] MEDS: Pantoprazole 40 MG VIAL IVP SCH (08:52)
[2025-03-04] MEDS ORDERED: MD-Gastroview 120 ML BOT ONE (11:37)
[2025-03-04] MEDS: Carvedilol 6.25 MG TAB PO SCH (21:51)
[2025-03-05] MEDS: Allopurinol 300 MG TAB PO SCH (08:14)
[2025-03-05] MEDS ORDERED: Furosemide 40 MG TAB PO SCH (09:00)
[2025-03-06 06:26] LABS: Anion Gap 14 mmol/L (10-20); BUN (Urea Nitrogen) 12 mg/dL (8.4-25.7); Calc. Creatinine Clearance 268 mL/min (70-130); Calcium 8.4 mg/dL (7.8-10.44); Carbon Dioxide 23 mmol/L (23-31); Chloride 105 mmol/L (98-107); Glucose 131 mg/dL (80-115); Potassium 3.3 mmol/L (3.5-5.1); Sodium 139 mmol/L (136-145)
[2025-03-06] MEDS: Dapagliflozin Propanediol 10 MG TAB PO SCH (11:18)
[2025-03-06] MEDS: Amiodarone 200 MG TAB PO SCH (11:18)
[2025-03-06] MEDS: Sacubitril 24MG/Valsartan 26 MG TAB PO SCH (11:19)
[2025-03-06] MEDS: Furosemide 40 MG (4 mL) VIAL SLOW IVP SCH (14:57)
[2025-03-07] MEDS: Aspirin 81 mg Enteric Coated Tablet PO SCH (09:51)
[2025-03-07 10:36] LABS: Anion Gap 14 mmol/L (10-20); BUN (Urea Nitrogen) 10 mg/dL (8.4-25.7); Calc. Creatinine Clearance 245 mL/min (70-130); Calcium 8.6 mg/dL (7.8-10.44); Carbon Dioxide 28 mmol/L (23-31); Chloride 102 mmol/L (98-107); Glucose 96 mg/dL (80-115); Potassium 3.3 mmol/L (3.5-5.1); Sodium 141 mmol/L (136-145)
[2025-03-07] MEDS: Furosemide 40 MG (4 mL) VIAL SLOW IVP SCH (11:53)
[2025-03-07] MEDS: HYDROcodone/Acetaminophen 5/325 mg Tablet PO PRN (11:54)
[2025-03-08 06:50] LABS: Magnesium 1.7 mg/dL (1.6-2.6); Potassium 3.0 mmol/L (3.5-5.1)
[2025-03-08] MEDS: Furosemide 40 MG (4 mL) VIAL SLOW IVP SCH (09:27)
[2025-03-08 12:13] LABS: Magnesium 1.7 mg/dL (1.6-2.6)
[2025-03-08] MEDS: Magnesium Oxide 400 MG TAB PO SCH (21:14)
[2025-03-09 05:57] LABS: Magnesium 1.8 mg/dL (1.6-2.6); Potassium 3.2 mmol/L (3.5-5.1)
[2025-03-09 13:39] VITALS: BMI 46.7
[2025-03-10 05:44] LABS: #Basophils 0.05 10x3/uL (0.0-0.2); #Eosinophils 0.70 10x3/uL (0.0-0.7); #Monocytes 0.42 10x3/uL (0.11-0.59); #Neutrophils 3.65 10x3/uL (1.40-6.50); %Basophils 0.7 % (0.0-1.0); %Eosinophils 10.1 % (0.0-10.0); %Lymphocytes 29.8 % (21.0-51.0); %Monocytes 6.1 % (0.0-10.0); %Neutrophils 52.9 % (42.0-75.0); Hematocrit 40.5 % (42.0-52.0); Hemoglobin 12.5 g/dL (14.0-18.0); Mean Corpuscular Hemoglobin 30.0 pg (27.0-31.0); Mean Corpuscular Volume 97.1 fL (78.0-98.0); Platelet Count 265 10x3/uL (130-400); Red Blood Cell (RBC) Count 4.17 mill/uL (4.70-6.10); White Blood Cell (WBC) Count 6.91 10x3/uL (4.8-10.8)
[2025-03-10 05:56] LABS: Anion Gap 12 mmol/L (10-20); BUN (Urea Nitrogen) 17 mg/dL (8.4-25.7); Calc. Creatinine Clearance 239 mL/min (70-130); Calcium 8.3 mg/dL (7.8-10.44); Carbon Dioxide 28 mmol/L (23-31); Chloride 104 mmol/L (98-107); Glucose 102 mg/dL (80-115); Potassium 3.5 mmol/L (3.5-5.1); Sodium 140 mmol/L (136-145)
[2025-03-10] MEDS: Furosemide 40 MG (4 mL) VIAL SLOW IVP SCH (09:44)
[2025-03-11] MEDS: Furosemide 40 MG TAB PO SCH (06:18)
[2025-03-11 16:04] VITALS: TEMP 97.8
[2025-03-11 21:24] VITALS: BP 113/64
== END 2025-03-11 21:26 | DRG 391 ==
LOC: ERS 00:18 → ERHOLD 08:00 → SURG A 15:31
PROVIDERS: ADMIT Internal Medicine; ATTEND Internal Medicine
PROC: 3E02340 Introduction of Influenza Vaccine into Muscle, Percutaneous Approach (ICD-10-PCS; principal; 2025-03-03)
PROC: 3E0234Z Introduction of Serum, Toxoid and Vaccine into Muscle, Percutaneous Approach (ICD-10-PCS; 2025-03-03)
DX: R10.9 Unspecified abdominal pain (principal); I50.43 Acute on chronic combined systolic (congestive) and diastolic (congestive) heart failure; U07.1 COVID-19; K31.1 Adult hypertrophic pyloric stenosis; F03.93 Unspecified dementia, unspecified severity, with mood disturbance; I13.0 Hypertensive heart and chronic kidney disease with heart failure and stage 1 through stage 4 chronic kidney disease, or unspecified chronic kidney disease; E78.5 Hyperlipidemia, unspecified; I25.10 Atherosclerotic heart disease of native coronary artery without angina pectoris; E66.9 Obesity, unspecified; G47.33 Obstructive sleep apnea (adult) (pediatric); F32.A Depression, unspecified; E11.22 Type 2 diabetes mellitus with diabetic chronic kidney disease; D63.1 Anemia in chronic kidney disease; G89.29 Other chronic pain; N18.2 Chronic kidney disease, stage 2 (mild); F17.290 Nicotine dependence, other tobacco product, uncomplicated; I25.2 Old myocardial infarction; Z91.148 Patient's other noncompliance with medication regimen for other reason; Z98.890 Other specified postprocedural states; Z95.5 Presence of coronary angioplasty implant and graft; Z79.899 Other long term (current) drug therapy; Z79.02 Long term (current) use of antithrombotics/antiplatelets; Z79.82 Long term (current) use of aspirin; Z79.891 Long term (current) use of opiate analgesic; E87.6 Hypokalemia; Z23 Encounter for immunization
CPT/HCPCS: 36415; 36416; 71275; 74018; 74177; 74250; 80048; 80053; 81001; 83690; 83735; 83880; 84132; 84484; 85025; 85610; 85730; 87637; 93005; 96361; 96365; 96375; 96376; J1885; J1940; J2270; J2272; J2405; J2470; J2765; J7030; Q9963; Q9967